=== PATIENT | female | born 1980 | race Caucasian/White ===

== ENCOUNTER 2019-10-20 18:20 | Emergency (ER) | payer SELFPAY ==
[~2019-10-20] VITALS: Ht 175 cm; Wt 87.8 kg
[2019-10-20] MEDS ORDERED: NS IV 1000 ML 1,000 ML IV ONE (18:43)
[2019-10-20] MEDS ORDERED: PROMETHAZINE INJ 25 MG/ML (PHENERGAN) AMP IVP ONE (18:45)
[2019-10-20] MEDS ORDERED: KETOROLAC 30 MG/ML VIAL IVP ONE (18:45)
[2019-10-20] MEDS ORDERED: CARI1.5C PO (18:46)
[2019-10-20] MEDS ORDERED: LISI-552 PO (18:46)
--- NOTE | 2019-10-20 18:52 | ED Abdominal Pain ---
General Chief Complaint: Abdominal/GI Problems Stated Complaint: PAIN IN RIGHT SIDE, VOMITING Nursing Triage Note: PT PRESENTS TO ED WITH COMPLAINTS OF N/V AND R SIDED ABDOMINAL PAIN X 12 DAYS. PT REPORTS SHE WAS SEEN AT [facility] ON 10/10/19 AND GIVEN FLUIDS AND PHENERGAN SUPPOSITORIES. PT REPORTS SHE COULD NOT TOLERATE THE SUPPOSITORIES AND SHE STOPPED TAKING THEM. PT REPORTS SHE HAS BEEN TAKING ZOFRAN BUT CONTINUES TO HAVE EPISODES OF NAUSEA/VOMITING. Sepsis Screen: No Definite Risk Source of Information: Patient Exam Limitations: No Limitations History of Present Illness Date Seen by Provider: Oct 20, 2019 Time Seen by Provider: 18:25 Initial Comments This 39-year-old woman presents to the emergency room by private vehicle with concerns about daily vomiting for the past 12 days. She reports vomiting 8 times today. She also has right flank pain that she rates as a 6/10. She states this feels similar to prior kidney stones. She notes increased urine frequency with lower volume but no hematuria or dysuria. She is vomiting despite taking Zofran. She has questionable constipation based on x-ray done earlier in the week. She had a normal bowel movement today. She denies fever. She has history of biliary dyskinesia status post cholecystectomy. She also denies as she has had a hysterectomy. She is quite concerned because she has missed 2 days of work because of this and she has a daughter getting in 2 days. [facility] [place], [place]. Patient describes a little bit of dizziness when she moves her eyes, but not when she moves her head. Allergies and Home Medications Allergies Coded Allergies: No Known Drug Allergies (Unverified , 10/20/19) Home Medications Lisinopril 20 Mg Tablet, 20 MG PO DAILY, (Reported) Promethazine HCl 25 Mg Tablet, 25 MG PO Q8H PRN for NAUSEA/VOMITING Prescribed by: CHARY DASILVA on 10/20/192055 Patient Home Medication List Home Medication List Reviewed: Yes Review of Systems Review of Systems Constitutional: no symptoms reported EENTM: No Symptoms Reported Respiratory: No Symptoms Reported Cardiovascular: No Symptoms Reported Gastrointestinal: See HPI Genitourinary: See HPI Musculoskeletal: no symptoms reported Skin: no symptoms reported Psychiatric/Neurological: No Symptoms Reported Endocrine: No Symptoms Reported Hematologic/Lymphatic: No Symptoms Reported Past Lbuadsk-Dzunar-Fmptpf Hx Past Med/Social Hx: Reviewed Nursing Past Med/Soc Hx Patient Social History Alcohol Use: Rarely Uses Recreational Drug Use: Yes Drug of Choice: thc Smoking Status: Current Everyday Smoker Type Used: Cigarettes Recent Foreign Travel: No Contact w/Someone Who Travel: No Recent Infectious Disease Expo: No Recent Hopitalizations: No Seasonal Allergies Seasonal Allergies: No Past Medical History Surgeries: Yes (r shoulder, l hip) Section, Gallbladder, Hysterectomy, Orthopedic, Tubal Ligation Respiratory: No Cardiac: Yes Hypertension Neurological: No Genitourinary: Yes Kidney Stones Gastrointestinal: Yes Ulcer Musculoskeletal: No Endocrine: No Cancer: No Psychosocial: Yes Bipolar Integumentary: No Blood Disorders: No Physical Exam Vital Signs Vital Signs - First Documented 10/20/19 18:36 Temp 37.4 Pulse 84 Resp 16 B/P (MAP) 126/98 (107) Pulse Ox 97 Capillary Refill : Less Than 3 Seconds Height/Weight/BMI Height: '" Weight: lbs. oz. kg; 28.00 BMI Method: General Appearance: WD/WN, mild distress HEENT: PERRL/EOMI, normal ENT inspection, other (mucous membranes somewhat dry) Neck: normal inspection Respiratory: lungs clear, normal breath sounds, no respiratory distress, no accessory muscle use Cardiovascular: regular rate, rhythm, no edema, no murmur Gastrointestinal: normal bowel sounds, soft, tenderness (right flank) Extremities: normal inspection, no pedal edema Neurologic/Psychiatric: machine rough rounder II-XII nml as tested, no motor/sensory deficits, alert, normal mood/affect, oriented x 3 Skin: normal color, warm/dry Progress/Results/Core Measures Results/Orders Lab Results Laboratory Tests Test 10/20/19 18:39 10/20/19 19:15 Range/Units White Blood Count 6.8 4.3-11.0 10^3/uL Red Blood Count 4.69 4.35-5.85 10^6/uL Hemoglobin 12.9 11.5-16.0 G/DL Hematocrit 38 35-52 % Mean Corpuscular Volume 82 80-99 FL Mean Corpuscular Hemoglobin 28 25-34 PG Mean Corpuscular Hemoglobin Concent 34 32-36 G/DL Red Cell Distribution Width 14.5 10.0-14.5 % Platelet Count 251 130-400 10^3/uL Mean Platelet Volume 10.9 H 7.4-10.4 FL Neutrophils (%) (Auto) 42 42-75 % Lymphocytes (%) (Auto) 49 H 12-44 % Monocytes (%) (Auto) 9 0-12 % Eosinophils (%) (Auto) 0 0-10 % Basophils (%) (Auto) 0 0-10 % Neutrophils # (Auto) 2.8 1.8-7.8 X 10^3 Lymphocytes # (Auto) 3.3 1.0-4.0 X 10^3 Monocytes # (Auto) 0.6 0.0-1.0 X 10^3 Eosinophils # (Auto) 0.0 0.0-0.3 10^3/uL Basophils # (Auto) 0.0 0.0-0.1 10^3/uL Sodium Level 142 135-145 MMOL/L Potassium Level 3.5 L 3.6-5.0 MMOL/L Chloride Level 107 98-107 MMOL/L Carbon Dioxide Level 26 21-32 MMOL/L Anion Gap 9 5-14 MMOL/L Blood Urea Nitrogen 4 L 7-18 MG/DL Creatinine 0.87 0.60-1.30 MG/DL Estimat Glomerular Filtration Rate > 60 BUN/Creatinine Ratio 5 Glucose Level 90 70-105 MG/DL Calcium Level 9.5 8.5-10.1 MG/DL Corrected Calcium 9.3 8.5-10.1 MG/DL Magnesium Level 1.5 L 1.6-2.4 MG/DL Total Bilirubin 0.3 0.1-1.0 MG/DL Aspartate Amino Transf (AST/SGOT) 17 5-34 U/L Alanine Aminotransferase (ALT/SGPT) 13 0-55 U/L Alkaline Phosphatase 75 40-136 U/L Total Protein 6.9 6.4-8.2 GM/DL Albumin 4.3 3.2-4.5 GM/DL Lipase 28 8-78 U/L Urine Color YELLOW Urine Clarity CLEAR Urine pH 7.0 5-9 Urine Specific [place] <=1.005 1.016-1.022 Urine Protein NEGATIVE NEGATIVE Urine Glucose (UA) NEGATIVE NEGATIVE Urine Ketones NEGATIVE NEGATIVE Urine Nitrite NEGATIVE NEGATIVE Urine Bilirubin NEGATIVE NEGATIVE Urine Urobilinogen 0.2 < = 1.0 MG/DL Urine Leukocyte Esterase NEGATIVE NEGATIVE Urine RBC (Auto) NEGATIVE NEGATIVE Urine RBC NONE /HPF Urine WBC NONE /HPF Urine Squamous Epithelial Cells 0-2 /HPF Urine Crystals NONE /LPF Urine Bacteria NEGATIVE /HPF Urine Casts NONE /LPF Urine Mucus NEGATIVE /LPF Urine Culture Indicated NO My Orders Orders - CHARY WARD MD Ua Culture If Indicated (10/20/19 18:25) Cbc With Automated Diff (10/20/19 18:43) Comprehensive Metabolic Panel (10/20/19 18:43) Lipase (10/20/19 18:43) Magnesium (10/20/19 18:43) Ed Iv/Invasive Line Start (10/20/19 18:43) Ns Iv 1000 Ml (Sodium Chloride 0.9%) (10/20/19 18:43) Ketorolac Injection (Toradol Injection) (10/20/19 18:45) Promethazine Injection (Phenergan Injec (10/20/19 18:45) Ct Abdomen/Pelvis W (10/20/19 19:53) Iohexol Injection (Omnipaque 350 Mg/Ml 1 (10/20/19 20:00) Received Contrast (Hold Metformin- Contr (10/20/19 20:00) Sodium Chloride Flush (Catheter Flush Sy (10/20/19 20:00) Ns (Ivpb) (Sodium Chloride 0.9% Ivpb Bag (10/20/19 20:00) Famotidine Injection (Pepcid Injection) (10/20/19 21:00) Meclizine Tablet (Antivert Tablet) (10/20/19 21:00) Medications Given in ED Current Medications Medications Dose Ordered Sig/Tomasz Route Start Time Stop Time Status Last Admin Dose Admin Famotidine 20 mg ONCE ONCE IVP 10/20/19 21:00 10/20/19 21:01 DC 10/20/19 20:59 20 MG Iohexol 100 ml ONCE ONCE IV 10/20/19 20:00 10/20/19 20:01 DC 10/20/19 20:12 100 ML Ketorolac Tromethamine 15 mg ONCE ONCE IVP 10/20/19 18:45 10/20/19 18:52 DC 10/20/19 18:55 15 MG Meclizine HCl 25 mg ONCE ONCE PO 10/20/19 21:00 10/20/19 21:01 DC 10/20/19 20:59 25 MG Promethazine HCl 25 mg ONCE ONCE IVP 10/20/19 18:45 10/20/19 18:52 DC 10/20/19 18:55 25 MG Sodium Chloride 10 ml NEEDED PRN IV 10/20/19 20:00 10/20/19 20:12 10 ML Sodium Chloride 100 ml ONCE ONCE IV 10/20/19 20:00 10/20/19 20:01 DC 10/20/19 20:12 80 ML Sodium Chloride 1,000 ml @ 0 mls/hr Q0M ONCE IV 10/20/19 18:43 10/20/19 18:52 DC 10/20/19 18:55 0 MLS/HR Vital Signs/I&O 10/20/19 18:36 Temp 37.4 Pulse 84 Resp 16 B/P (MAP) 126/98 (107) Pulse Ox 97 Blood Pressure Mean: 107 Progress Progress Note #1: Time: 18:51 Progress Note Patient was seen and examined. IV fluids with Phenergan has been ordered for hydration and nausea control. Toradol has been ordered for pain management. Labs and UA are pending. Progress Note #2: Time: 19:58 Progress Note Workup thus far has been relatively unremarkable. I discussed further evaluation with CT scan with the patient. Risks discussed included cost, exposure to IV contrast, and radiation exposure increasing cancer risk. Benefits of evaluating for ureteral stone and appendicitis were also discussed. We discussed lab results as well. There is a lymphocytic predominance which would suggest viral etiology. However, since this illness has been so disruptive to her life and been persistent for 12 days, she would like to proceed with the CT scan. Progress Note #3: Time: 21:08 Progress Note Patient is feeling largely improved. CT was negative. Imaging was reviewed with the radiologist. We discussed results. I recommended that she follow up soon with her primary care provider as she may need further workup if symptoms do not improve. We discussed other possible etiologies such as duodenal ulcer that could cause pain in this location. She has some dizziness still with movement of her eyes but states this is improving with Phenergan. We will add some meclizine. I will also give Pepcid prior to dismissal. Phenergan is being prescribed to add to her Zofran. See discharge instructions. Diagnostic Imaging Diagonstic Imaging: CT Plain Films/CT/US/NM/MRI: abdomen, pelvis Comments CT abdomen and pelvis viewed by me and report reviewed. I discussed with the radiologist. See report below: NAME: EMERITA RIVERA [facility] REC#: [id number] PT STATUS: REG ER : 1980 PHYSICIAN: CHARY WARD MD ADMIT DATE: 10/20/19/ER Draft Date of Exam:10/20/19 CT ABDOMEN/PELVIS W PROCEDURE: CT abdomen and pelvis with contrast. TECHNIQUE: Multiple contiguous axial images were obtained through the abdomen and pelvis after administration of intravenous contrast. Auto Exposure Controls were utilized during the CT exam to meet ALARA standards for radiation dose reduction. INDICATION: Vomiting with right flank pain. Past surgical history includes hysterectomy, , laparotomy and cholecystectomy. History of cervical cancer. FINDINGS: The heart size is normal. The lung bases are clear. The liver is normal in size. Gallbladder is surgically absent. There is no biliary ductal dilatation. Spleen is normal. The pancreas and adrenal glands are unremarkable. The kidneys are normal in appearance. Specifically, there is no evidence of nephrolithiasis or obstructive uropathy. The aorta is nonaneurysmal. The bowel gas pattern is nonspecific. There is no free air. There is no ascites. No focal inflammatory change. Bladder is normal. No pelvic mass or adenopathy. The osseous structures are unremarkable. IMPRESSION: No acute abnormality in the abdomen or pelvis. Specifically, there is no evidence of nephrolithiasis or obstructive uropathy. Dictated on workstation # [id number] Dict: 10/20/192026 Trans: 10/20/192030 [facility] [phone] Interpreted by: ARNOLD CASTILLO MD Departure Impression Primary Impression: Right flank pain Additional Impressions: Acute vomiting Dizziness Disposition: HOME, SELF-CARE Condition: Improved Departure-Patient Inst. Decision time for Depature: 20:53 Patient Instructions: Acute Abdomen (Belly Pain), Adult (DC) Add. Discharge Instructions: Adhere to a noncarbonated clear liquid diet for the next 24 hours. Drink plenty of clear liquids to stay well-hydrated. Then gradually advance your diet with small quantities of bland food as tolerated. You may continue using Zofran for primary nausea control. Add Phenergan for br eakthrough nausea and vomiting. Try using meclizine which can be purchased [id number] for dizziness if needed. Please be aware that Phenergan (promethazine) and meclizine can both cause drowsiness. Take an antacid such as Pepcid (famotidine) 20 mg twice daily or omeprazole 20 mg twice daily for the next 2 weeks. Return to emergency room if you have worsening symptoms despite these measures. Call your primary care provider tomorrow to arrange follow-up. If symptoms do not resolve soon, you may need further workup such as endoscopy. All discharge instructions reviewed with patient and/or family. Voiced understanding. Scripts Promethazine HCl (Promethazine Tablet) 25 Mg Tablet 25 MG PO Q8H PRN for NAUSEA/VOMITING, #10 TAB Prov: CHARY WARD MD 10/20/19 Work/School Note: Work Release Form Date Seen in the Emergency Department: Oct 20, 2019 Return to Work: Oct 22, 2019 Restrictions: No Restrictions CHARY WARD MD Oct 20, 2019 18:51
[2019-10-20 18:55] LABS: BASOPHILS % (AUTO) 0 % (0-10); EOSINOPHILS % (AUTO) 0 % (0-10); HEMATOCRIT 38 % (35-52); HEMOGLOBIN 12.9 G/DL (11.5-16.0); LYMPHOCYTES # (AUTO) 3.3 X 10^3 (1.0-4.0); LYMPHOCYTES % (AUTO) 49 % (12-44); MEAN CORPUSCULAR HEMOGLOBIN 28 PG (25-34); MEAN CORPUSCULAR HGB CONC 34 G/DL (32-36); MEAN CORPUSCULAR VOLUME 82 FL (80-99); MEAN PLATELET VOLUME 10.9 FL (7.4-10.4); MONOCYTES # (AUTO) 0.6 X 10^3 (0.0-1.0); MONOCYTES % (AUTO) 9 % (0-12); NEUTROPHILS # (AUTO) 2.8 X 10^3 (1.8-7.8); NEUTROPHILS % (AUTO) 42 % (42-75); PLATELET COUNT 251 10^3/uL (130-400); RED CELL DISTRIBUTION WIDTH 14.5 % (10.0-14.5); WHITE BLOOD COUNT 6.8 10^3/uL (4.3-11.0)
[2019-10-20 19:11] LABS: ALANINE AMINOTRANSFERASE 13 U/L (0-55); ALBUMIN 4.3 GM/DL (3.2-4.5); ALKALINE PHOSPHATASE 75 U/L (40-136); BILIRUBIN,TOTAL 0.3 MG/DL (0.1-1.0); BUN/CREATININE RATIO 5; CALCIUM 9.5 MG/DL (8.5-10.1); CARBON DIOXIDE 26 MMOL/L (21-32); CHLORIDE 107 MMOL/L (98-107); CREATININE SERUM 0.87 MG/DL (0.60-1.30); GFR ESTIMATED > 60; GLUCOSE 90 MG/DL (70-105); LIPASE 28 U/L (8-78); MAGNESIUM 1.5 MG/DL (1.6-2.4); POTASSIUM 3.5 MMOL/L (3.6-5.0); SODIUM 142 MMOL/L (135-145); TOTAL PROTEIN 6.9 GM/DL (6.4-8.2)
[2019-10-20 19:31] LABS: BILIRUBIN,URINE NEGATIVE (NEGATIVE); CLARITY,URINE CLEAR; COLOR,URINE YELLOW; GLUCOSE, URINE (UA) NEGATIVE (NEGATIVE); KETONES,URINE NEGATIVE (NEGATIVE); LEUKOCYTE ESTERASE ,URINE NEGATIVE (NEGATIVE); NITRITE,URINE NEGATIVE (NEGATIVE); PROTEIN,URINE NEGATIVE (NEGATIVE)
[2019-10-20 19:42] LABS: BACTERIA,URINE NEGATIVE /HPF; SQUAMOUS EPITHELIAL CELL,UR 0-2 /HPF
[2019-10-20] MEDS ORDERED: IOHEXOL 350 MG/ML 100 ML (OMNIPAQUE 350) VIAL IV ONE (20:00)
[2019-10-20] MEDS ORDERED: NS 100 ML (IVPB) BAG IV ONE (20:00)
[2019-10-20] MEDS ORDERED: HOLD METFORMIN - RECEIVED CONTRAST 20 ML VIAL IV SCH (20:00)
[2019-10-20] MEDS ORDERED: CATHETER FLUSH 10 ML SYR IV PRN (20:00)
--- NOTE | 2019-10-20 20:31 | Diagnostic Imaging Report ---
PROCEDURE: CT abdomen and pelvis with contrast. TECHNIQUE: Multiple contiguous axial images were obtained through the abdomen and pelvis after administration of intravenous contrast. Auto Exposure Controls were utilized during the CT exam to meet ALARA standards for radiation dose reduction. INDICATION: Vomiting with right flank pain. Past surgical history includes hysterectomy, , laparotomy and cholecystectomy. History of cervical cancer. FINDINGS: The heart size is normal. The lung bases are clear. The liver is normal in size. Gallbladder is surgically absent. There is no biliary ductal dilatation. Spleen is normal. The pancreas and adrenal glands are unremarkable. The kidneys are normal in appearance. Specifically, there is no evidence of nephrolithiasis or obstructive uropathy. The aorta is nonaneurysmal. The bowel gas pattern is nonspecific. There is no free air. There is no ascites. No focal inflammatory change. Bladder is normal. No pelvic mass or adenopathy. The osseous structures are unremarkable. IMPRESSION: No acute abnormality in the abdomen or pelvis. Specifically, there is no evidence of nephrolithiasis or obstructive uropathy. Dictated by: Dictated on workstation # [id number]
[2019-10-20] MEDS ORDERED: PROM25TA14 PO (20:56)
[2019-10-20] MEDS ORDERED: FAMOTIDINE 20MG/2ML IV (PEPCID) IVP ONE (21:00)
[2019-10-20] MEDS ORDERED: MECLIZINE 25 MG (ANTIVERT) TAB PO ONE (21:00)
[2019-10-20 21:11] VITALS: BP 123/74
== END 2019-10-20 21:11 | disposition home or self-care (01) ==
LOC: ER 18:24
DX: R10.9 Unspecified abdominal pain (principal); R11.2 Nausea with vomiting, unspecified; R42 Dizziness and giddiness; I10 Essential (primary) hypertension; F17.210 Nicotine dependence, cigarettes, uncomplicated
CPT/HCPCS: 36415; 74177; 80053; 81000; 83690; 83735; 85025